=== PATIENT | female | born 1975 | race Two or more races ===

== ENCOUNTER 2021-03-03 11:32 | Emergency (ER) | payer SELFPAY ==
[~2021-03-03] VITALS: Ht 170.2 cm; Wt 75.0 kg
[2021-03-03 12:30] LABS: BASO # 0.1 x10^3/uL (0.0-0.2); BASO % 1 % (0-3); EOS % 0 % (0-3); HEMOGLOBIN 14.6 g/dL (12.0-15.5); LYMPH # 2.2 x10^3/uL (1.0-4.8); LYMPH % 30 % (24-48); MEAN CORPUSCULAR HEMOGLOBIN 31 pg (25-35); MEAN CORPUSCULAR HGB CONC 34 g/dL (31-37); MEAN CORPUSCULAR VOLUME 92 fL (79-100); MONO # 0.4 x10^3/uL (0.0-1.1); MONO % 6 % (0-9); NEUT # 4.5 x10^3/uL (1.8-7.7); NEUT % 62 % (31-73); PLATELET COUNT 196 x10^3/uL (140-400); RED CELL DISTRIBUTION WIDTH 13.9 % (11.5-14.5); WHITE BLOOD COUNT 7.2 x10^3/uL (4.0-11.0)
[2021-03-03] MEDS ORDERED: ASPIRIN 325 MG TABLET PO ONE (12:30)
[2021-03-03] MEDS ORDERED: IV NORMAL SALINE 1000ML BAG 1,000 ML IV SCH (12:30)
[2021-03-03 12:38] LABS: CALCIUM 9.3 mg/dL (8.5-10.1); CREATININE 0.7 mg/dL (0.6-1.0); GFR 90.9; POTASSIUM 3.8 mmol/L (3.5-5.1)
[2021-03-03 12:43] LABS: ALBUMIN 4.2 g/dL (3.4-5.0); ALBUMIN/GLOBULIN RATIO 1.2 (1.0-1.7); MAGNESIUM 2.4 mg/dL (1.8-2.4); TOTAL BILIRUBIN 0.3 mg/dL (0.2-1.0); TOTAL PROTEIN 7.6 g/dL (6.4-8.2)
[2021-03-03 12:53] LABS: BILIRUBIN,URINE NEGATIVE (NEG); CLARITY,URINE CLEAR; COLOR,URINE YELLOW; NITRITE,URINE NEGATIVE (NEG); PROTEIN,URINE NEGATIVE (NEG-TRACE); UROBILINOGEN,URINE 0.2 mg/dL (0.2 mg/dL)
--- NOTE | 2021-03-03 12:56 | EKG ---
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
--- NOTE | 2021-03-03 13:10 | RAD ---
EXAM: Chest, single view. HISTORY: Pain. COMPARISON: None. FINDINGS: A frontal view of the chest is obtained. There is no infiltrate, pleural effusion or pneumo thorax. The heart is normal in size. IMPRESSION: No acute pulmonary finding. Electronically signed by: Caty Meyer MD (03/03/2021 1:08 PM) [id number]
[2021-03-03 13:14] LABS: BACTERIA,URINE FEW /HPF (0-FEW); RBC,URINE OCC /HPF (0-2); WBC,URINE OCC /HPF (0-4)
--- NOTE | 2021-03-03 14:22 | PHYS DOC ---
Past Medical History Additional Past Medical Histor: "pre diabetes" (SHANTANU BRADLEY PERSONAL COMPUTER SPECIALIST) Past Surgical History: Other Additional Past Surgical Histo: thyroid removed (SHANTANU BRADLEY PERSONAL COMPUTER SPECIALIST) Smoking Status: Never Smoker Alcohol Use: None (SHANTANU BRADLEY APRN) General Adult EDM: Chief Complaint: UPPER EXTREMITY PAIN HPI: HPI: Patient is a 45 year old female who presents with left heaviness chest pain that goes into the left arm bilaterally with tingling and just a heaviness feeling has been going on since yesterday. She states is both arms. She denies pain. She denies loss of function. She denies swelling. She denies skin color change or temperature change. She has a history of thyroid removal and diabetes. (SHANTANU BRADLEY PERSONAL COMPUTER SPECIALIST) Review of Systems: Review of Systems: Constitutional: Denies fever or chills. [] Eyes: Denies change in visual acuity. [] HENT: Denies nasal congestion or sore throat. [] Respiratory: Denies cough or shortness of breath. [] Cardiovascular: Denies chest pain or edema. [] GI: Denies abdominal pain, nausea, vomiting, bloody stools or diarrhea. [] : Denies dysuria. [] Musculoskeletal: Denies back pain or joint pain. [] Integument: Denies rash. [] Neurologic: Denies headache, focal weakness or sensory changes. [] Endocrine: Denies polyuria or polydipsia. [] Lymphatic: Denies swollen glands. [] Psychiatric: Denies depression or anxiety. [] (SHANTANU BRADLEY PERSONAL COMPUTER SPECIALIST) Heart Score: C/O Chest Pain: Yes HEART Score for Chest Pain: HEART Score for Chest Pain Response (Comments) Value History Slighlty/Non-Suspicious 0 ECG Normal 0 Age < 45 0 Risk Factors 1 or 2 Risk Factors 1 Troponin < Normal Limit 0 Total 1 Risk Factors: Risk Factors: DM, Current or recent (<one month) smoker, HTN, HLP, family history of CAD, obesity. Risk Scores: Score 0 - 3: 2.5% MACE over next 6 weeks - Discharge Home Score 4 - 6: 20.3% MACE over next 6 weeks - Admit for Clinical Observation Score 7 - 10: 72.7% MACE over next 6 weeks - Early Invasive Strategies (BAFUS,SHANTANU M PERSONAL COMPUTER SPECIALIST) Current Medications: Current Medications Medications (Trade) Dose Ordered Sig/[facility] Start Time Stop Time Status Last Admin Dose Admin Aspirin (Nathne Aspirin) 325 mg 1X ONCE 03/03/21 12:30 03/03/21 12:45 DC 03/03/21 12:48 325 MG Sodium Chloride 1,000 ml @ 1,000 mls/hr Q1H 03/03/21 12:30 03/03/21 13:29 DC 03/03/21 12:48 1,000 MLS/HR (SHANTANU BRADLEY PERSONAL COMPUTER SPECIALIST) Allergies: Allergies: Allergies Coded Allergies Type Severity Reaction Last Updated Verified No Known Drug Allergies 03/03/21 No (SHANTANU BRADLEY APRN) Physical Exam: PE: Constitutional: Well developed, well nourished, no acute distress, non-toxic appearance. [] HENT: Normocephalic, atraumatic, bilateral external ears normal, oropharynx moist, no oral exudates, nose normal. [] Eyes: PERRLA, EOMI, conjunctiva normal, no discharge. [] Neck: Normal range of motion, no tenderness, supple, no stridor. [] Cardiovascular:Heart rate regular rhythm, no murmur [] Lungs & Thorax: Bilateral breath sounds clear to auscultation [] Abdomen: Bowel sounds normal, soft, no tenderness, no masses, no pulsatile masses. [] Skin: Warm, dry, no erythema, no rash. [] Back: No tenderness, no CVA tenderness. [] Extremities: No tenderness, no cyanosis, no clubbing, ROM intact, no edema. [] Neurologic: Alert and oriented X 3, normal motor function, normal sensory function, no focal deficits noted. [] Psychologic: Affect normal, judgement normal, mood normal. [] Normal physical exam (SHANTANU BRADLEY PERSONAL COMPUTER SPECIALIST) Current Patient Data: Labs: Laboratory Tests Test 03/03/21 12:14 03/03/21 12:29 03/03/21 12:31 White Blood Count 7.2 x10^3/uL (4.0-11.0) Red Blood Count 4.70 x10^6/uL (3.50-5.40) Hemoglobin 14.6 g/dL (12.0-15.5) Hematocrit 43.0 % (36.0-47.0) Mean Corpuscular Volume 92 fL (79-100) Mean Corpuscular Hemoglobin 31 pg (25-35) Mean Corpuscular Hemoglobin Concent 34 g/dL (31-37) Red Cell Distribution Width 13.9 % (11.5-14.5) Platelet Count 196 x10^3/uL (140-400) Neutrophils (%) (Auto) 62 % (31-73) Lymphocytes (%) (Auto) 30 % (24-48) Monocytes (%) (Auto) 6 % (0-9) Eosinophils (%) (Auto) 0 % (0-3) Basophils (%) (Auto) 1 % (0-3) Neutrophils # (Auto) 4.5 x10^3/uL (1.8-7.7) Lymphocytes # (Auto) 2.2 x10^3/uL (1.0-4.8) Monocytes # (Auto) 0.4 x10^3/uL (0.0-1.1) Eosinophils # (Auto) 0.0 x10^3/uL (0.0-0.7) Basophils # (Auto) 0.1 x10^3/uL (0.0-0.2) Sodium Level 139 mmol/L (136-145) Potassium Level 3.8 mmol/L (3.5-5.1) Chloride Level 105 mmol/L (98-107) Carbon Dioxide Level 23 mmol/L (21-32) Anion Gap 11 (6-14) Blood Urea Nitrogen 9 mg/dL (7-20) Creatinine 0.7 mg/dL (0.6-1.0) Estimated GFR (Cockcroft-Gault) 90.9 BUN/Creatinine Ratio 13 (6-20) Glucose Level 152 mg/dL (70-99) H Calcium Level 9.3 mg/dL (8.5-10.1) Magnesium Level 2.4 mg/dL (1.8-2.4) Total Bilirubin 0.3 mg/dL (0.2-1.0) Aspartate Amino Transferase (AST) 15 U/L (15-37) Alanine Aminotransferase (ALT) 29 U/L (14-59) Alkaline Phosphatase 70 U/L (46-116) Troponin I Quantitative < 0.017 ng/mL (0.000-0.055) LR-Zib-O-Type Natriuretic Peptide 96 pg/mL (0-124) Total Protein 7.6 g/dL (6.4-8.2) Albumin 4.2 g/dL (3.4-5.0) Albumin/Globulin Ratio 1.2 (1.0-1.7) Urine Collection Type Unknown Urine Color Yellow Urine Clarity Clear Urine pH 7.0 (<5.0-8.0) Urine Specific [place] 1.020 (1.000-1.030) Urine Protein Negative mg/dL (NEG-TRACE) Urine Glucose (UA) Negative mg/dL (NEG) Urine Ketones (Stick) Negative mg/dL (NEG) Urine Blood Negative (NEG) Urine Nitrite Negative (NEG) Urine Bilirubin Negative (NEG) Urine Urobilinogen Dipstick 0.2 mg/dL (0.2 mg/dL) Urine Leukocyte Esterase Small (NEG) Urine RBC Occ /HPF (0-2) Urine WBC Occ /HPF (0-4) Urine Squamous Epithelial Cells Mod /LPF Urine Bacteria Few /HPF (0-FEW) Urine Mucus Slight /LPF POC Urine HCG, Qualitative Hcg negative (Negative) Laboratory Tests 03/03/21 12:14 Laboratory Tests 03/03/21 12:14 Vital Signs: Vital Signs Date Time Temp Pulse Resp B/P (MAP) Pulse Ox O2 Delivery O2 Flow Rate FiO2 03/03/21 12:49 77 20 132/70 (90) 97 Room Air 03/03/21 11:40 98.4 98.4 (SHANTANU BRADLEY APRN) EKG: EK and read by Dr. Keith is a sinus tachycardia with no STEMI [] (SHANTANU BRADLEY APRN) Radiology/Procedures: Radiology/Procedures: [] Impression: [facility] [address] [place] [address] IMAGING REPORT Signed PATIENT: ESTELLA FOX ACCOUNT: [id number] : 1975 LOCATION: ER AGE: 45 SEX: F EXAM STATUS: REG ER ORD. PHYSICIAN: SHANTANU BRADLEY APRN REASON: chest pain PROCEDURE: PORTABLE CHEST 1V EXAM: Chest, single view. HISTORY: Pain. COMPARISON: None. FINDINGS: A frontal view of the chest is obtained. There is no infiltrate, pleural effusion or pneumothorax. The heart is normal in size. IMPRESSION: No acute pulmonary finding. Electronically signed by: Caty Burch MD (03/03/2021 1:08 PM) [id number] DICTATED and SIGNED BY: CATY BURCH MD DATE: 03/03/21 [id number] (SHANTANU BRADLEY APRN) Course & Med Decision Making: Course & Med Decision Making Pertinent Labs and Imaging studies reviewed. (See chart for details) See HPI. Alert and oriented x4. Ambulatory steady gait. Speaks in full clear sentences. Yakut-speaking and a movie producer is used. Skin pink warm and dry. No tenderness to extremities. No swelling to extremities. Radial pulses strong present. Cap refill less than 2 seconds. Full range of motion and strength equally bilaterally in upper and lower extremities. She denies any current dizziness, headache or vision change. There are no focal weaknesses. She denies any current injury or lifting anything heavy or doing any new physical activity. States she stays at home and does not work. She states that this did start in her upper back and was radiating around into her shoulders and going down into her arms. No focal bony spinal tenderness. Blood work is unremarkable. Chest x-ray shows no acute findings. Two negative troponins. Patient is stable and in no distress. This is likely nerve related. Vital signs are within normal limits. [] (SHANTANU BRADLEY APRN) Course & Med Decision Making I have reviewed and agree with all pertinent clinical information above including history, exam, and recommendations. Christina Keith DO (CHRISTINA KEITH DO) Ruma Disclaimer: Ruma Disclaimer: This electronic medical record was generated, in whole or in part, using a voice recognition dictation system. (SHANTANU BRADLEY APRN) Departure Departure Impression: Primary Impression: Cervical radiculopathy Disposition: HOME / SELF CARE / HOMELESS Condition: STABLE Referrals: NO PCP (PCP) Patient Instructions: Cervical Radiculopathy Additional Instructions: Follow-up with your primary care provider. Drink plenty of fluids. Use medication as prescribed take with food. Scripts Ibuprofen (IBUPROFEN) 600 Mg Tablet 600 MG PO PRN Q6HRS PRN for INFLAMMATION, #26 TAB Prov: SHANTANU BRADLEY APRN 03/03/21 SHANTANU BRADLEY APRN Mar 03, 2021 14:22 CHRISTINA KEITH DO Mar 03, 2021 18:24
[2021-03-03] MEDS ORDERED: IBUP-1007 PO (15:44)
[2021-03-03 15:46] VITALS: BP 151/73
== END 2021-03-03 15:54 | disposition home or self-care (01) ==
LOC: ER 11:32
DX: M54.12 Radiculopathy, cervical region (principal); R07.89 Other chest pain
CPT/HCPCS: 36415; 71045; 80053; 81001; 81025; 83735; 83880; 84436; 84443; 84484; 85025; 87086; 93005; 96360; 99285; J7030

== ENCOUNTER 2021-07-24 10:41 | Emergency (ER) | payer SELFPAY ==
[~2021-07-24] VITALS: Ht 160 cm; Wt 90.4 kg
[~2021-07-24 10:41] MED LIST: IBUP-1007 PO
[2021-07-24 11:41] LABS: BASO # 0.1 x10^3/uL (0.0-0.2); BASO % 1 % (0-3); EOS % 0 % (0-3); HEMATOCRIT 44.3 % (36.0-47.0); HEMOGLOBIN 14.6 g/dL (12.0-15.5); LYMPH # 1.8 x10^3/uL (1.0-4.8); LYMPH % 22 % (24-48); MEAN CORPUSCULAR HEMOGLOBIN 30 pg (25-35); MEAN CORPUSCULAR HGB CONC 33 g/dL (31-37); MEAN CORPUSCULAR VOLUME 92 fL (79-100); MONO # 0.7 x10^3/uL (0.0-1.1); MONO % 8 % (0-9); NEUT # 5.7 x10^3/uL (1.8-7.7); NEUT % 69 % (31-73); PLATELET COUNT 206 x10^3/uL (140-400); RED BLOOD COUNT 4.85 x10^6/uL (3.50-5.40); WHITE BLOOD COUNT 8.3 x10^3/uL (4.0-11.0)
[2021-07-24 11:47] LABS: CALCIUM 8.8 mg/dL (8.5-10.1); CREATININE 0.6 mg/dL (0.6-1.0); GFR 108.6; POTASSIUM 3.9 mmol/L (3.5-5.1)
--- NOTE | 2021-07-24 11:47 | RAD ---
EXAM: Chest, single view. HISTORY: Chest pain. COMPARISON: 03/03/2021 FINDINGS: A frontal view of the chest is obtained. There is no infiltrate, pleural effusion or pneumo thorax. The heart is normal in size. IMPRESSION: No acute pulmonary finding. Electronically signed by: Caty Meyer MD (07/24/2021 11:45 AM) [id number]
--- NOTE | 2021-07-24 11:47 | RAD ---
EXAM: Head CT without contrast. HISTORY: Left extremity heaviness. TECHNIQUE: Computed tomographic images of the head were obtained without contrast. *One or more of the following individualized dose reduction techniques were utilized for this examina tion: 1. Automated exposure control. 2. Adjustment of the mA and/or kV according to patient size. 3. Use of iterative reconstruction technique. COMPARISON: None. FINDINGS: There is no acute or subacute extra-axial or intraparenchymal hemorrhage. There is no mass effect or midline shift. There is no hydrocephalus. The sauceda-white matter differentiation pattern is intact. The visualized portions of the orbits, paranasal sinuses and mastoid air cells are unremarkable. No s uspicious calvarial lesion is seen. IMPRESSION: No acute intracranial findings. Electronically signed by: Caty Meyer MD (07/24/2021 11:44 AM) [id number]
[2021-07-24 11:50] LABS: ALBUMIN 4.1 g/dL (3.4-5.0); ALBUMIN/GLOBULIN RATIO 1.1 (1.0-1.7); TOTAL BILIRUBIN 0.3 mg/dL (0.2-1.0); TOTAL PROTEIN 7.8 g/dL (6.4-8.2)
--- NOTE | 2021-07-24 12:19 | PHYS DOC ---
Past Medical History Additional Past Medical Histor: "pre diabetes" Past Surgical History: Other Additional Past Surgical Histo: thyroidectomy Smoking Status: Never Smoker Alcohol Use: None General Adult EDM: Chief Complaint: CHEST PAIN HPI: HPI: Patient is a 45 year old female with history of "prediabetes" on metformin, obesity who presents from an outpatient clinic with concerns of a heart attack. She has been having soreness in her left arm since Tuesday of this week. States that it felt heavy. Tuesday she felt like her leg on the left also felt heavy, but denies any true weakness or numbness. Yesterday she had substernal chest discomfort in addition to her arm soreness. This lasted for several hours. Is better this morning. She denies any vision changes, facial asymmetry, speech difficulty, coordination difficulty, or other neurologic changes. Review of Systems: Review of Systems: Constitutional: Denies fever or chills. [] Eyes: Denies change in visual acuity. [] HENT: Denies nasal congestion or sore throat. [] Respiratory: Denies cough or shortness of breath. [] Cardiovascular: Denies current chest pain. Had chest pain yesterday. GI: Denies abdominal pain, nausea, vomiting, bloody stools or diarrhea. [] : Denies dysuria. [] Musculoskeletal: Denies back pain or joint pain. [] Integument: Denies rash. [] Neurologic: Reports left arm and leg heaviness, but denies outright weakness. Denies headache, focal weakness or sensory changes. [] Psychiatric: Denies depression or anxiety. [] Heart Score: C/O Chest Pain: Yes HEART Score for Chest Pain: HEART Score for Chest Pain Response (Comments) Value History Moderately Suspicious 1 ECG Nonspecific Repolarizatio 1 Age < 45 0 Risk Factors 1 or 2 Risk Factors 1 Troponin < Normal Limit 0 Total 3 Risk Factors: Risk Factors: DM, obesity Risk Scores: Score 0 - 3: 2.5% MACE over next 6 weeks - Discharge Home Allergies: Allergies: Allergies Coded Allergies Type Severity Reaction Last Updated Verified No Known Drug Allergies 03/03/21 No Physical Exam: PE: Constitutional: Well developed, well nourished, no acute distress, non-toxic appearance. [] HENT: Normocephalic, atraumatic, bilateral external ears normal, oropharynx moist, no oral exudates, nose normal. [] Eyes: PERRLA, EOMI, conjunctiva normal, no discharge. [] Neck: Normal range of motion, no tenderness, supple, no stridor. [] Cardiovascular:Heart rate regular rhythm, no murmur [] Lungs & Thorax: Bilateral breath sounds clear to auscultation [] Abdomen: Soft, nondistended, nontender. Skin: Warm, dry, no erythema, no rash. [] Back: No tenderness, no CVA tenderness. [] Extremities: No tenderness, no cyanosis, no clubbing, ROM intact, no edema. [] Neurologic: Alert, oriented to person, place, time. Face is symmetric. Speech is normal. Cranial nerves III-XII intact. 5/5 strength in bilateral upper and lower extremities in all dermatomes. No dysmetria with [id number]-[id number]-hrya or furt-yb-mlfe testing. Gait is stable. NIH = 0 Psychologic: Affect normal, judgement normal, mood normal. [] Current Patient Data: Labs: Laboratory Tests Test 07/24/21 11:00 White Blood Count 8.3 x10^3/uL (4.0-11.0) Red Blood Count 4.85 x10^6/uL (3.50-5.40) Hemoglobin 14.6 g/dL (12.0-15.5) Hematocrit 44.3 % (36.0-47.0) Mean Corpuscular Volume 92 fL (79-100) Mean Corpuscular Hemoglobin 30 pg (25-35) Mean Corpuscular Hemoglobin Concent 33 g/dL (31-37) Red Cell Distribution Width 14.0 % (11.5-14.5) Platelet Count 206 x10^3/uL (140-400) Neutrophils (%) (Auto) 69 % (31-73) Lymphocytes (%) (Auto) 22 % (24-48) L Monocytes (%) (Auto) 8 % (0-9) Eosinophils (%) (Auto) 0 % (0-3) Basophils (%) (Auto) 1 % (0-3) Neutrophils # (Auto) 5.7 x10^3/uL (1.8-7.7) Lymphocytes # (Auto) 1.8 x10^3/uL (1.0-4.8) Monocytes # (Auto) 0.7 x10^3/uL (0.0-1.1) Eosinophils # (Auto) 0.0 x10^3/uL (0.0-0.7) Basophils # (Auto) 0.1 x10^3/uL (0.0-0.2) Sodium Level 136 mmol/L (136-145) Potassium Level 3.9 mmol/L (3.5-5.1) Chloride Level 105 mmol/L (98-107) Carbon Dioxide Level 22 mmol/L (21-32) Anion Gap 9 (6-14) Blood Urea Nitrogen 12 mg/dL (7-20) Creatinine 0.6 mg/dL (0.6-1.0) Estimated GFR (Cockcroft-Gault) 108.6 BUN/Creatinine Ratio 20 (6-20) Glucose Level 114 mg/dL (70-99) H Calcium Level 8.8 mg/dL (8.5-10.1) Total Bilirubin 0.3 mg/dL (0.2-1.0) Aspartate Amino Transferase (AST) 15 U/L (15-37) Alanine Aminotransferase (ALT) 33 U/L (14-59) Alkaline Phosphatase 80 U/L (46-116) Troponin I High Sensitivity 4 ng/L (4-50) Total Protein 7.8 g/dL (6.4-8.2) Albumin 4.1 g/dL (3.4-5.0) Albumin/Globulin Ratio 1.1 (1.0-1.7) Lipase 73 U/L (73-393) Laboratory Tests 07/24/21 11:00 Laboratory Tests 07/24/21 11:00 Vital Signs: Vital Signs Date Time Temp Pulse Resp B/P (MAP) Pulse Ox O2 Delivery O2 Flow Rate FiO2 07/24/21 10:48 98.0 108 18 153/79 (103) 97 Room Air 98.0 EKG: EKG: Sinus rhythm. Rate 112. Left axis deviation. Q waves and T wave inversions in 1 and aVL as well as in lead II. No acute ST segment elevation or depression. [] Radiology/Procedures: Radiology/Procedures: [] Impression: [facility] [address] [place] [address] IMAGING REPORT Signed PATIENT: ESTELLA FOX ACCOUNT: [id number] : 1975 LOCATION: ER AGE: 45 SEX: F EXAM STATUS: PRE ER ORD. PHYSICIAN: TIN BARGER MD REASON: CHEST PAIN PROCEDURE: CHEST AP ONLY EXAM: Chest, single view. HISTORY: Chest pain. COMPARISON: 03/03/2021 FINDINGS: A frontal view of the chest is obtained. There is no infiltrate, pleural effusion or pneumothorax. The heart is normal in size. IMPRESSION: No acute pulmonary finding. Electronically signed by: Caty Burch MD (07/24/2021 11:45 AM) [id number] DICTATED and SIGNED BY: CATY BURCH MD DATE: 07/24/21 [id number] [facility] [address] [place], [place] [id number] IMAGING REPORT Signed PATIENT: ESTELLA FOX ACCOUNT: [id number] : 1975 LOCATION: ER AGE: 45 SEX: F EXAM STATUS: PRE ER ORD. PHYSICIAN: TIN BARGER MD REASON: LEFT ARM AND LEG FEEL HEAVY PROCEDURE: CT HEAD WO CONTRAST EXAM: Head CT without contrast. HISTORY: Left extremity heaviness. TECHNIQUE: Computed tomographic images of the head were obtained without contrast. *One or more of the following individualized dose reduction techniques were utilized for this examination: 1. Automated exposure control. 2. Adjustment of the mA and/or kV according to patient size. 3. Use of iterative reconstruction technique. COMPARISON: None. FINDINGS: There is no acute or subacute extra-axial or intraparenchymal hemorrhage. There is no mass effect or midline shift. There is no hydrocephalus. The sauceda-white matter differentiation pattern is intact. The visualized portions of the orbits, paranasal sinuses and mastoid air cells are unremarkable. No suspicious calvarial lesion is seen. IMPRESSION: No acute intracranial findings. Electronically signed by: Caty Burch MD (07/24/2021 11:44 AM) [id number] DICTATED and SIGNED BY: CATY BURCH MD DATE: 07/24/21 [id number] Course & Med Decision Making: Course & Med Decision Making Pertinent Labs and Imaging studies reviewed. (See chart for details) Patient a 45-year-old female with history of prediabetes, obesity who presents with chest discomfort left-sided limb "heaviness." Neuro exam intact without any evidence of weakness. NIH = 0, doubt stroke or TIA. Considered mass or other subacute intracranial process so CT head was ordered and was ultimately negative. EKG shows q-waves and t-wave inversions in the high lateral leads without ST segment changes. Troponin is negative and given timing of symptoms is sufficient to r/o ACS. HEART score is 3. Recommending close outpatient follow up. CXR shows no e/o pulmonary process. She has no edema, shortness of breath, or pleuritic pain to suggest PE. COVID is negative. Normal/symmetric pulses, doubt aortic dissection. 1309 Discussed need for close outpatient follow up. She states she follows with [facility] and will schedule a follow up appointment for consideration of further work up/stress testing. Went over return precautions several times for worsening neurologic symptoms. Ruma Disclaimer: Ruma Disclaimer: This electronic medical record was generated, in whole or in part, using a voice recognition dictation system. Departure Departure Impression: Primary Impression: Chest discomfort Additional Impression: Left upper limb pain Disposition: HOME / SELF CARE / HOMELESS Condition: STABLE Referrals: NO PCP (PCP) Additional Instructions: The CT scan of your head was normal. Your blood work did not show any evidence of damage to your heart. Please schedule follow-up appointment with [facility]. They may want to do further testing for your heart such as a stress test. If you develop worsening pain, new shortness of breath, high fevers/chills or other new/concerning symptoms he can was return to the emergency department for reevaluation. If you develop worsening left-sided symptoms like weakness, clumsiness, speech difficulty, vision changes, sudden or severe headache please return to the emergency department immediately. NIHSS Stroke Scale NIH Stroke Scale: NIH Stroke Scale Response (Comments) Value Level of Consciousness: 0 Alert/Responsive 0 LOC Questions: 0 Answers both correctly 0 LOC Commands: 0 Performs both tasks 0 Best Gaze: 0 Normal 0 Visual: 0 No visual loss 0 Facial Palsy: 0 Normal, symmetrical 0 Motor - Left Arm 0 No drift 0 Motor - Right Arm 0 No drift 0 Motor - Left Leg 0 No drift 0 Motor: Right Leg 0 No drift 0 Limb Ataxia: 0 Absent 0 Sensory: 0 No loss 0 Best Language: 0 Normal 0 Dysathria: 0 Normal 0 Extinction and Inattention: 0 Normal 0 Total 0 TIN BARGER MD Jul 24, 2021 12:19
--- NOTE | 2021-07-24 12:31 | EKG ---
[facility] [address] [place] [address] Test Date: 2021-07-24 Test Time: 10:48:19 Pat Name: ESTELLA FOX Department: Room: Gender: F Director Specialty: : 1975 Requested By: TIN BARGER Order Number: [id number] Reading MD: Sina Siegel Measurements Intervals [place] Rate: 112 P: 154 CA: 130 QRS: 156 QRSD: 84 T: 164 QT: 324 QTc: 444 Interpretive Statements SINUS TACH ABNORMAL RIGHT AXIS DEVIATION NON SPECIFIC ST-T WAVE CHANGES Electronically Signed On 07-25-2021 15:18:30 JOB MOLDER by Sina Siegel
[2021-07-24 13:50] VITALS: BP 126/76
== END 2021-07-24 14:05 | disposition home or self-care (01) ==
LOC: ER 10:41
DX: R07.89 Other chest pain (principal); Z20.822 Contact with and (suspected) exposure to COVID-19; M79.602 Pain in left arm
CPT/HCPCS: 36415; 70450; 71045; 80053; 83690; 84484; 85025; 87426; 93005; 99285; U0003; U0005